=== PATIENT | female | born 1970 | race Caucasian/White ===

== ENCOUNTER → 2017-01-11 | Day surgery (SDC) | payer OTHER ==
--- NOTE | 2017-01-12 15:49 | PATH ---
Surgical Pathology Report Patient Name: SABINA THOMAS [facility]. Rec. #: [id number] /Age/Gender: 1970 (Age: 46) / F Account: [id number] Location: [facility] Taken: 01/11/2017 Received: 01/11/2017 Reported: 01/12/2017 Physicians: Nickie Zavaleta Specimen(s) Received A: RIGHT BREAST SPECIMEN WITH CALCIFICATIONS B: RIGHT BREAST SPECIMEN WITHOUT CALCIFICATIONS Clinical History Nonpalpable lesion Mammographic findings: Suspicious microcalcifications Final Diagnosis A. BREAST, RIGHT, WITH CALCIFICATIONS, STEREOTACTIC BIOPSY: BENIGN BREAST TISSUE SHOWING RARE CALCIFICATIONS IN ASSOCIATION WITH BENIGN GLANDULAR PARENCHYMA. B. BREAST, RIGHT, WITHOUT CALCIFICATIONS, STEREOTACTIC BIOPSY: BENIGN BREAST TISSUE. Electronically Signed Yoli Link M.D. Gross Description A. Received in formalin labeled "right breast with calcifications," is a 2.2 x 2.0 x 0.3 cm aggregate of multiple danielle-yellow, irregular to cylindrical portions of fibroadipose tissue. The formalin is filtered and the specimen is entirely submitted in one cassette. B. Received in formalin labeled "right breast without calcifications," is a 1.3 x 1.1 x 0.3 cm aggregate of multiple danielle-yellow, irregular to cylindrical portions of fibroadipose tissue. The formalin is filtered and the specimen is entirely submitted in one cassette. Time to formalin fixation: 5 minutes Total formalin fixation time: Approximately 8 hours. /01/11/2017 [facility]01/11/2017
== END | disposition home or self-care (01) ==
LOC: FMAMMOTONE 09:10
PROVIDERS: ATTEND Registered Nurse Medical-Surgical
PROC: 0HBT3ZX Excision of Right Breast, Percutaneous Approach, Diagnostic (ICD-10-PCS; principal; 2017-01-11)
DX: N60.81 Other benign mammary dysplasias of right breast (principal); R92.1 Mammographic calcification found on diagnostic imaging of breast; N64.89 Other specified disorders of breast
CPT/HCPCS: 19081; 87899; 88305-TC; A4648

== ENCOUNTER 2018-12-30 16:19 | Inpatient (IN) | payer OTHER ==
[2018-12-30] MEDS ORDERED: morphine SULFATE 4 MG/ML VIAL ONE (17:15)
--- NOTE | 2018-12-30 17:35 | PDOC ---
History of Present Illness - General Chief Complaint: Abscess Boil Stated Complaint: ABSCESS LEFT LEG Time Seen by Provider: 12/30/18 16:37 History Source: Patient Exam Limitations: Language Barrier - History of Present Illness Initial Comments: 12/30/18 17:32 Pt is a 48yo F with PMH of HIV (on Atripla) CD4 adn Viral Load checked in Sep 2018 presenting today for abscess on the L inner thigh. She said she had it for 4 days, said it was small yesterday but has gotten bigger and more painful. She has never had an abscess like this before or elsewhere. She endorses subjective fevers, chills and nausea. She denies pain in the genital area, no vaginal discharge, abdominal pain, n/v/d, chest pain, cough, recent illnesses. PMD: Kathy PMH: see hpi PSH: Meds: Atripla Allergies: nkda Past History - Past Medical History Allergies/Adverse Reactions: Allergies Allergy/AdvReac Type Severity Reaction Status Date / Time No Known Allergies Allergy Verified 02/28/16 15:39 Home Medications: Ambulatory Orders Cholecalciferol (Vitamin D3) [Vitamin D3] 2,000 unit PO DAILY #30 capsule Acetaminophen [Tylenol] 2 tab PO Q4H PRN #60 tablet 01/12/17 Emtricitab/Rilpivirine/Tenofov [Complera Tablet -] 1 each PO DAILY #30 tablet Ibuprofen [Motrin -] 1 tab PO Q8H PRN #21 tablet MDD 3 06/20/17 Multivitamin with Minerals [Icaps Plus] 1 each PO DAILY #30 tablet 06/20/17 Amitriptyline HCl [Elavil -] 25 mg PO HS PRN 10/08/17 Fluoxetine HCl [Prozac] 10 mg PO AM #10 capsule MDD 1 10/18/17 Fluoxetine HCl [Prozac] 20 mg PO AM #30 capsule 01/03/18 Multivitamin [Daily Multiple Vitamin] 1 each PO DAILY #30 tablet 09/23/18 Vitamin B Complex [B Complex] 1 each PO DAILY #30 tablet 09/23/18 Anemia: No Asthma: No Cancer: No Cardiac Disorders: No CVA: No COPD: No CHF: No Dementia: No Diabetes: No GI Disorders: No Disorders: No HTN: No Hypercholesterolemia: No Liver Disease: No Psychiatric Problems: Yes (Depression with 2 suicidal gestures) Seizures: No Thyroid Disease: No - Surgical History Abdominal Surgery: Yes (OVARY CYSTS) - Suicide/Smoking/Psychosocial Hx Smoking History: Never smoked Have you smoked in the past 12 months: No Number of Cigarettes Smoked Daily: 2 If you are a former smoker, when did you quit?: 06/2014 Cigars Per Day: 0 Hx Alcohol Use: No Drug/Substance Use Hx: No Substance Use Type: None Hx Substance Use Treatment: No Review of Systems - Review of Systems Constitutional: Yes: Chills, Fever HEENTM: No: Symptoms Reported Respiratory: No: Cough, Shortness of Breath Cardiac (ROS): No: Chest Pain, Lightheadedness, Palpitations ABD/GI: Yes: Nausea. No: Blood Streaked Bowels, Constipated, Diarrhea, Poor Appetite, Abdominal cramping, Tarry Stools : No: Burning, Dysuria, Flank Pain, Hematuria Musculoskeletal: No: Back Pain, Joint Pain, Muscle Pain Integumentary: Yes: See HPI, Erythema, Lesions Neurological: No: Headache, Numbness, Tingling *Physical Exam - Vital Signs Last Vital Signs Temp Pulse Resp BP Pulse Ox 98.5 F 90 16 111/65 99 12/30/18 16:39 12/30/18 16:39 12/30/18 16:39 12/30/18 16:39 12/30/18 16:39 - Physical Exam General Appearance: Yes: Nourished, Appropriately Dressed, Moderate Distress HEENT: positive: EOMI, MIKA, Other (normal oropharynx). negative: Scleral Icterus (R), Scleral Icterus (L), Thrush Neck: positive: Supple. negative: Lymphadenopathy (R), Lymphadenopathy (L) Respiratory/Chest: positive: Lungs Clear, Normal Breath Sounds. negative: Crackles, Rales, Rhonchi Cardiovascular: positive: Regular Rhythm, Regular Rate, S1, S2. negative: Edema , JVD, Murmur Vascular Pulses: Carotid (R): 2+, Carotid (L): 2+, Dorsalis-Pedis (R): 2+, Doralis-Pedis (L): 2+ Gastrointestinal/Abdominal: positive: Normal Bowel Sounds, Soft. negative: Distended, Guarding, Rebound, Tenderness Musculoskeletal: negative: CVA Tenderness Extremity: positive: Normal Capillary Refill, Pelvis Stable. negative: Swelling Integumentary: positive: Normal Color, Dry, Warm, Other (6cm firm abscess without drainage, ttp with surrounding erythema. ) Neurologic: positive: cryptologic support specialist II-XII NML intact, Fully Oriented, Alert, Normal Mood/ Affect, Normal Response, Motor Strength 5/5 Moderate Sedation - Procedure Monitoring Vital Signs: Procedure Monitoring Vital Signs Temperature 98.5 F 12/30/18 16:39 Pulse Rate 90 12/30/18 16:39 Respiratory Rate 16 12/30/18 16:39 Blood Pressure 111/65 12/30/18 16:39 O2 Sat by Pulse Oximetry (%) 99 12/30/18 16:39 Medical Decision Making - Medical Decision Making 12/30/18 17:35 Pt is a 48yo F with PMH of HIV (on Atripla) CD4 adn Viral Load checked in Sep 2018 presenting today for abscess on the L inner thigh. She said she had it for 4 days, said it was small yesterday but has gotten bigger and more painful. She has never had an abscess like this before or elsewhere. She endorses subjective fevers, chills and nausea. She denies pain in the genital area, no vaginal discharge, abdominal pain, n/v/d, chest pain, cough, recent illnesses. Vitals: afebrile, normal vitals PE: abscess in L thigh near gluteal fold history of HIV with abscess. Low suspicion for Jl Gangrene at this time. POCUS showed cobblestoning at area of abscess, does not appear to go deeper into tissues. -cbc, cmp, blood cultures, lact, coags -4mg morphine 12/30/18 18:01
[2018-12-30] MEDS ORDERED: morphine CARPU-JECT 4 MG/1 ML DISP.SYRIN IVPUSH ONE (17:36)
[2018-12-30 18:02] LABS: BASO % 0.3 % (0-2.0); EOS % 1.3 % (0-4.5); HEMATOCRIT 37.2 % (32.4-45.2); HEMOGLOBIN 12.7 GM/dL (10.7-15.3); LYMPH % 22.5 % (8-40); MCH 29.8 pg (25.7-33.7); MCHC 34.1 g/dl (32.0-36.0); MEAN CELL VOLUME 87.6 fl (80-96); MEAN PLT VOLUME 9.3 fl (7.5-11.1); MONO % 7.8 % (3.8-10.2); NEUT % 68.1 % (42.8-82.8); PLATELET COUNT 148 K/MM3 (134-434); RBC 4.24 M/mm3 (3.60-5.2); WHITE BLOOD COUNT 5.5 K/mm3 (4.0-10.0)
[2018-12-30 18:27] LABS: INR 0.99 (0.83-1.09); PROTHROMBIN TIME (PATIENT) 11.7 SEC (9.7-13.0)
[2018-12-30 18:30] LABS: ACTIVATED PTT 28.1 SECONDS (25.2-36.5)
[2018-12-30 18:35] LABS: ALBUMIN 3.6 g/dl (3.4-5.0); ALK PHOS 132 U/L (45-117); ANION GAP 5 MMOL/L (8-16); BILIRUBIN,TOTAL 0.4 mg/dL (0.2-1); BLOOD UREA NITROGEN 15 mg/dL (7-18); CALCIUM 8.9 mg/dL (8.5-10.1); CHLORIDE 104 mmol/L (98-107); CO2 27 mmol/L (21-32); CREATININE 0.8 mg/dL (0.55-1.3); GLUCOSE,RANDOM 90 mg/dL (74-106); POTASSIUM 3.7 mmol/L (3.5-5.1); SGOT/AST 18 U/L (15-37); SGPT/ALT 28 U/L (13-61); SODIUM 137 mmol/L (136-145); TOT PROT 7.9 g/dl (6.4-8.2)
--- NOTE | 2018-12-30 18:49 | PDOC ---
Attending Attestation - HPI HPI: 12/30/18 18:56 The patient is a 48 year old female, with a significant past medical history of HIV (on Atripla CD4 and Viral Load last checked in Sep 2018), who presents to the emergency department with, 4 days of an abscess to left inner thigh with associated subjective fevers and nausea without emesis. She denies recent headache or dizziness. She denies recent vomit, diarrhea or constipation. She denies recent dysuria, frequency, urgency or hematuria. She denies recent chest pain or shortness of breath. Allergies: NKDA Primary Care Physician: Dr. Cassy Chavez - Physicial Exam PE: 12/30/18 18:56 GENERAL: Well-appearing, well-nourished. No apparent distress. HEENT: Normocephalic, atraumatic. PERRL, EOM intact. CARDIOVASCULAR: Normal S1, S2. Regular rate and rhythm. PULMONARY: Clear to auscultation bilaterally. ABDOMEN: Soft, non-distended, non-tender. EXTREMITIES: Normal ROM in all four extremities. No gross deformities. SKIN: +6x6cm area of induration to the left inner thigh near a gluteal fold with fluctuance, tenderness, and erythema. NEUROLOGICAL: No focal neurological deficits. <Nika Mcdonnell - Last Filed: 12/30/18 18:56> - Resident Resident Name: America Elise - ED Attending Attestation I have performed the following: I have examined & evaluated the patient, The case was reviewed & discussed with the resident, I agree w/resident's findings & plan, Exceptions are as noted - Medical Decision Making 12/30/18 21:[address] Knowles pt admitted for IV antibiotics,surgery for abscess on this immunocompromised pt Dr Knowles will consult on pt in the am pt started on antibiotics <Yumiko Worley - Last Filed: 12/30/18 21:19> Attestations - Attestations 12/30/18 18:56 Documentation prepared by Nika Mcdonnell, acting as medical observer for Yumiko Worley MD. <Nika Mcdonnell - Last Filed: 12/30/18 18:56>
[2018-12-30] MEDS ORDERED: SULFAMETHOXAZOLE/TRIMETHOPRIM 800MG/160MG D.S. TABLET PO ONE (18:57)
[2018-12-30] MEDS ORDERED: SULFAMETHOXAZOLE/TRIMETHOPRIM 800MG/160MG D.S. TABLET ONE (20:30)
--- NOTE | 2018-12-30 21:18 | HP ---
Admitting History and Physical - Primary Care Physician PCP: Shubham Espinoza - Admission History of Present Illness: 48 year old female, with a significant past medical history of HIV (on Atripla CD4 and Viral Load last checked in Sep 2018), who presents to the emergency department with, 4 days of an abscess to left inner thigh with associated subjective fevers and nausea without emesis. - Past Medical History ...LMP: 10/05/14 Infectious Disease: Yes: HIV - Smoking History Smoking history: Never smoked Have you smoked in the past 12 months: No Aproximately how many cigarettes per day: 2 If you are a former smoker, when did you quit?: 06/2014 - Alcohol/Substance Use Hx Alcohol Use: No Home Medications - Allergies Allergies/Adverse Reactions: Allergies Allergy/AdvReac Type Severity Reaction Status Date / Time vancomycin AdvReac Mild Itching Verified 01/01/19 17:10 - Home Medications Home Medications: Ambulatory Orders Cholecalciferol (Vitamin D3) [Vitamin D3] 2,000 unit PO DAILY #30 capsule Acetaminophen [Tylenol] 2 tab PO Q4H PRN #60 tablet 01/12/17 Ibuprofen [Motrin -] 1 tab PO Q8H PRN #21 tablet MDD 3 06/20/17 Multivitamin with Minerals [Icaps Plus] 1 each PO DAILY #30 tablet 06/20/17 Multivitamin [Daily Multiple Vitamin] 1 each PO DAILY #30 tablet 09/23/18 Vitamin B Complex [B Complex] 1 each PO DAILY #30 tablet 09/23/18 Efavirenz/Emtricit/Tenofovr Df [Atripla Tablet] 1 each PO HS 12/31/18 Physical Examination Vital Signs: Vital Signs Temperature 98.5 F 12/30/18 16:39 Pulse Rate 90 12/30/18 16:39 Respiratory Rate 16 12/30/18 16:39 Blood Pressure 111/65 12/30/18 16:39 O2 Sat by Pulse Oximetry (%) 99 12/30/18 16:39 Constitutional: Yes: No Distress HENT: Yes: Atraumatic Neck: Yes: Supple Cardiovascular: Yes: Regular Rate and Rhythm Respiratory: Yes: CTA Bilaterally Gastrointestinal: Yes: Normal Bowel Sounds Extremities: Yes: Other (left thigh /gluteal fold abcess) Neurological: Yes: Alert, Oriented Labs: CBC, BMP 12/30/18 17:18 12/30/18 17:18 Problem List - Problems (1) Abscess Assessment/Plan: iv abx surgery consult Code(s): L02.91 - CUTANEOUS ABSCESS, UNSPECIFIED (2) Human immunodeficiency virus (HIV) seropositivity Assessment/Plan: continue home meds Code(s): Z21 - ASYMPTOMATIC HUMAN IMMUNODEFICIENCY VIRUS INFECTION STATUS Assessment/Plan Laboratory Tests 12/30/18 12/30/18 12/30/18 17:18 17:18 17:18 WBC 5.5 RBC 4.24 Hgb 12.7 Hct 37.2 MCV 87.6 MCH 29.8 MCHC 34.1 RDW 14.0 Plt Count 148 MPV 9.3 Absolute Neuts (auto) 3.8 Neutrophils % 68.1 Lymphocytes % 22.5 D Monocytes % 7.8 Eosinophils % 1.3 Basophils % 0.3 Nucleated RBC % 0 PT with INR INR PTT (Actin FS) Sodium 137 Potassium 3.7 Chloride 104 Carbon Dioxide 27 Anion Gap 5 L BUN 15 Creatinine 0.8 Creat Clearance w eGFR > 60 Random Glucose 90 Lactic Acid Calcium 8.9 Total Bilirubin 0.4 AST 18 ALT 28 Alkaline Phosphatase 132 H Total Protein 7.9 Albumin 3.6 Serum , Qual Negative 12/30/18 12/30/18 17:35 17:35 WBC RBC Hgb Hct MCV MCH MCHC RDW Plt Count MPV Absolute Neuts (auto) Neutrophils % Lymphocytes % Monocytes % Eosinophils % Basophils % Nucleated RBC % PT with INR 11.70 INR 0.99 PTT (Actin FS) 28.1 Sodium Potassium Chloride Carbon Dioxide Anion Gap BUN Creatinine Creat Clearance w eGFR Random Glucose Lactic Acid 0.8 Calcium Total Bilirubin AST ALT Alkaline Phosphatase Total Protein Albumin Serum , Qual Active Medications Generic Name Dose Route Start Last Admin Trade Name Freq PRN Reason Stop Dose Admin Acetaminophen 650 mg 12/30/18 21:22 12/31/18 08:05 Tylenol - PO 650 mg Q6H PRN Administration FEVER Amitriptyline HCl 25 mg 12/30/18 21:21 Elavil - PO HS PRN HEADACHE Cholecalciferol 2,000 unit 12/31/18 10:00 12/31/18 09:09 Vitamin D3 - PO 2,000 unit DAILY KADE Administration Emtricitabine/Rilpivirine/Tenofovir 1 each 12/31/18 08:00 12/31/18 08:05 Complera - PO 1 each DAILY@0800 KADE Administration Fluoxetine HCl 10 mg 12/31/18 10:00 12/31/18 09:09 Prozac - PO 10 mg DAILY KADE Administration Heparin Sodium (Porcine) 5,000 unit 12/30/18 22:00 12/31/18 09:12 Heparin - SQ 5,000 unit BID KADE Administration Piperacillin Sod/Tazobactam 50 mls @ 100 mls/hr 12/30/18 21:45 12/31/18 18:25 Sod 3.375 gm/ Dextrose IVPB 100 mls/hr Q8H-IV KADE Administration Protocol Multivitamins/Minerals/Vitamin C 1 tab 12/31/18 10:00 12/31/18 09:09 Tab-A-Vit - PO 1 tab DAILY KADE Administration Ondansetron HCl 4 mg 12/31/18 15:56 Zofran Injection IVPUSH Q4H PRN NAUSEA AND/OR VOMITING
[2018-12-30] MEDS ORDERED: AMITRIPTYLINE HCL 25 MG TABLET (FP) PO PRN (21:21)
[2018-12-30] MEDS ORDERED: VANCOMYCIN 1,000 MG in DEXTROSE 5%-WATER - 250 ML IVPB ONE (21:36)
[2018-12-30] MEDS ORDERED: ACETAMINOPHEN 325 MG TABLET (FP) ONE (22:17)
[2018-12-30] MEDS: PIPERACILLIN/TAZOB 3.375 GM 3.375 GM in DEXTROSE 5%-WATER - 50 ML IVPB SCH (22:18)
[2018-12-30] MEDS ORDERED: PIPERACILLIN/TAZOB 3.375 GM 3.375 GM/50 ML BAG IVPB ONE (22:18)
[2018-12-30] MEDS: ACETAMINOPHEN 325 MG TABLET (FP) PO PRN (22:18)
[2018-12-31] MEDS ORDERED: PNEUMOC 13-VAL CONJ-DIP CRM/PF 0.5 ML DISP.SYRIN IM ONE (01:36)
[2018-12-31] MEDS ORDERED: DEXTROSE 5%-WATER - 50 ML IVPB ONE ×4 (02:28→20:48)
[2018-12-31] MEDS ORDERED: PIPERACILLIN/TAZOBACTAM 3.375 GM VIAL IVPB ONE ×4 (02:28→20:48)
[2018-12-31] MEDS: PIPERACILLIN/TAZOB 3.375 GM 3.375 GM in DEXTROSE 5%-WATER - 50 ML IVPB SCH ×3 (02:30→18:25)
[2018-12-31 03:04] VITALS: BMI 25.2
[2018-12-31] MEDS: HEPARIN NA (PORCINE) 5,000 UNITS/ML 1ML VIAL SQ SCH ×3 (04:20→21:24)
[2018-12-31] MEDS ORDERED: PT OWN MED DRAWER 7, Y5N ONE ×4 (06:43→10:28)
[2018-12-31] MEDS: EMTRICITAB/RILPIVIRINE/TENOFOV 1 EACH TABLET PO SCH (08:05)
[2018-12-31] MEDS: ACETAMINOPHEN 325 MG TABLET (FP) PO PRN (08:05)
[2018-12-31 08:44] LABS: BASO % 0.3 % (0-2.0); EOS % 2.2 % (0-4.5); HEMATOCRIT 34.8 % (32.4-45.2); HEMOGLOBIN 11.6 GM/dL (10.7-15.3); MCHC 33.4 g/dl (32.0-36.0); MEAN CELL VOLUME 86.6 fl (80-96); MEAN PLT VOLUME 8.8 fl (7.5-11.1); MONO % 11.5 % (3.8-10.2); PLATELET COUNT 136 K/MM3 (134-434); RBC 4.01 M/mm3 (3.60-5.2); RDW 13.9 % (11.6-15.6)
[2018-12-31] MEDS: MULTIVITAMINS (DAILY MVI) TABLET (FP) PO SCH (09:09)
[2018-12-31] MEDS: FLUoxetine HCL 10 MG CAPSULE (FP) PO SCH (09:09)
[2018-12-31] MEDS: CHOLECALCIFEROL (VITAMIN D3) 1,000 UNIT TABLET (FP) PO SCH (09:09)
[2018-12-31 09:13] LABS: ALBUMIN 3.2 g/dl (3.4-5.0); ALK PHOS 126 U/L (45-117); ANION GAP 6 MMOL/L (8-16); BILIRUBIN,TOTAL 0.4 mg/dL (0.2-1); BLOOD UREA NITROGEN 13 mg/dL (7-18); CALCIUM 8.5 mg/dL (8.5-10.1); CHLORIDE 107 mmol/L (98-107); CO2 26 mmol/L (21-32); GLUCOSE,RANDOM 98 mg/dL (74-106); SGOT/AST 14 U/L (15-37); SGPT/ALT 22 U/L (13-61); SODIUM 139 mmol/L (136-145); TOT PROT 7.2 g/dl (6.4-8.2)
[2018-12-31] MEDS ORDERED: PNEUMOCOCCAL 23 VACCINE 0.5 ML VIAL IM ONE (10:00)
[2018-12-31 10:11] LABS: URINE APPEARANCE SLCLOUDY; URINE BILIRUBIN NEGATIVE (<2.0 mg/dL); URINE COLOR YELLOW; URINE GLUCOSE (UA) NEGATIVE (NEGATIVE); URINE KETONE NEGATIVE (NEGATIVE); URINE LEUK ESTERASE 1+ (NEGATIVE); URINE NITRITE NEGATIVE (NEGATIVE); URINE PROTEIN NEGATIVE (NEGATIVE); URINE UROBILINOGEN NEGATIVE mg/dL (0.2-1.0)
[2018-12-31 10:25] LABS: EPI CELLS MODERATE /HPF (FEW)
--- NOTE | 2018-12-31 12:01 | CON.ID ---
Consult Consult Specialty:: infectious diseases Referred by:: Reason for Consultation:: gluteal abscess - History of Present Illness Chief Complaint: abscess on the gluteal region History of Present Illness: 48 year old female, with a significant past medical history of HIV (on Atripla CD4 ), who presents to the emergency department with, 4 days of an abscess to left inner thigh with associated subjective fevers and nausea without emesis. according to the patient she does not know how it happened but it started hurting her and the patient decided to come to the hospital patient received bactrim ds patient is c/o of pain at that site denies any fever - History Source History Provided By: Patient Limitations to Obtaining History: Language Barrier - Past Medical History ...LMP: 10/05/14 Infectious Disease: Yes: HIV - Alcohol/Substance Use Hx Alcohol Use: No - Smoking History Smoking history: Former smoker Have you smoked in the past 12 months: No Aproximately how many cigarettes per day: 2 If you are a former smoker, when did you quit?: 06/2014 Home Medications - Allergies Allergies/Adverse Reactions: Allergies Allergy/AdvReac Type Severity Reaction Status Date / Time No Known Allergies Allergy Verified 02/28/16 15:39 - Home Medications Home Medications: Ambulatory Orders Cholecalciferol (Vitamin D3) [Vitamin D3] 2,000 unit PO DAILY #30 capsule Acetaminophen [Tylenol] 2 tab PO Q4H PRN #60 tablet 01/12/17 Emtricitab/Rilpivirine/Tenofov [Complera Tablet -] 1 each PO DAILY #30 tablet Ibuprofen [Motrin -] 1 tab PO Q8H PRN #21 tablet MDD 3 06/20/17 Multivitamin with Minerals [Icaps Plus] 1 each PO DAILY #30 tablet 06/20/17 Amitriptyline HCl [Elavil -] 25 mg PO HS PRN 10/08/17 Fluoxetine HCl [Prozac] 10 mg PO AM #10 capsule MDD 1 10/18/17 Fluoxetine HCl [Prozac] 20 mg PO AM #30 capsule 01/03/18 Multivitamin [Daily Multiple Vitamin] 1 each PO DAILY #30 tablet 09/23/18 Vitamin B Complex [B Complex] 1 each PO DAILY #30 tablet 09/23/18 Review of Systems - Review of Systems Constitutional: reports: No Symptoms Eyes: reports: No Symptoms HENT: reports: No Symptoms Neck: reports: No Symptoms Cardiovascular: reports: No Symptoms Respiratory: reports: No Symptoms Gastrointestinal: reports: No Symptoms Musculoskeletal: reports: Muscle Pain (gluteal region) Integumentary: reports: Erythema, Wound Neurological: reports: No Symptoms Endocrine: reports: No Symptoms Hematology/Lymphatic: reports: No Symptoms Psychiatric: reports: No Symptoms Physical Exam Vital Signs: Vital Signs Temperature 98.1 F 12/31/18 06:11 Pulse Rate 62 12/31/18 06:11 Respiratory Rate 20 12/31/18 06:11 Blood Pressure 92/54 L 12/31/18 06:11 O2 Sat by Pulse Oximetry (%) 100 12/30/18 17:25 Constitutional: Yes: Well Nourished, Calm, Mild Distress, Obese Eyes: Yes: Conjunctiva Clear HENT: Yes: Atraumatic, Normocephalic Neck: Yes: Supple Cardiovascular: Yes: Regular Rate and Rhythm Respiratory: Yes: Regular, CTA Bilaterally Gastrointestinal: Yes: Normal Bowel Sounds, Soft Renal/: Yes: Other (gluteal abscess) Musculoskeletal: Yes: WNL Wound/Incision: Yes: Draining Neurological: Yes: Alert, Oriented Psychiatric: Yes: Alert, Oriented Labs: CBC, BMP 12/31/18 07:45 12/31/18 07:45 Assessment/Plan Problem List - Problems (1) Abscess Code(s): L02.91 - CUTANEOUS ABSCESS, UNSPECIFIED (2) Human immunodeficiency virus (HIV) seropositivity Code(s): Z21 - ASYMPTOMATIC HUMAN IMMUNODEFICIENCY VIRUS INFECTION STATUS plan this cutaneous abscess neds to be drained we will continue iv abx for now once drained we can switch to oral rest as per the team
[2018-12-31] MEDS ORDERED: ONDANSETRON 4 MG/2 ML VIAL IVPUSH PRN (15:56)
--- NOTE | 2018-12-31 17:45 | CONSULT ---
Consult Consult Specialty:: General Surgery Referred by:: Dr. Worley Reason for Consultation:: left gluteal fold abscess - History of Present Illness Chief Complaint: left gluteal fold pain, nausea, f/c History of Present Illness: 48yo [place] F with HIV but undetectable viral load in September, h/o depression no longer on meds, s/p lap tubal ligation and RSO via open incision, admitted yesterday through ER with left gluteal fold abscess beginning about 4 days prior as small bump/pimple that got bigger and much worse yesterday. It started to drain last night and earlier today, per pt had some bloody drainage as well as purulent. She had F/C at home prior to admission, along with nausea but no vomiting until today earlier here. Headache and right sinus pressure with nasal congestion also present, she states she has had the latter for about 2 weeks. In ER, she was afebrile with Tmax 99, wbc normal 4-5 with normal diff, and noted to have this abscess. She has been on IV antibiotics per ID, tolerating diet, but did have n/v this morning. Surgery was asked to assess. She is seen and examined in bed, and understands enough Gabonese to get through H &P with me, giving the above history. Newton Guzman assisted with R[place]andan conversation regarding the lesion itself, possible treatments and the plan. - History Source History Provided By: Patient Limitations to Obtaining History: Language Barrier (Rwandan, facilitated by Newton Guzman at bedside) - Past Medical History Hepatobiliary: Yes: Hepatitis B (?? core Ab was positive in '-, but no RNA detectable in '16) Reproductive: Yes: Ectopic (requiring RSO). No: Postmenopausal ...LMP: 12/07/18 ...: No Infectious Disease: Yes: HIV (viral load <20/undetectable 10/08 with CD4 absolute 449) Psych: Yes: Depression (history of, not on meds for at least 4 months) ENT: Yes: Other (has had a cold for about 2 weeks, headache/right sinus pressure ) - Past Surgical History Past Surgical History: Yes: Oopherectomy (right with tube, after ectopic (via lower midline incision)), Tubal Ligation (laparoscopic) - Alcohol/Substance Use Hx Alcohol Use: Yes (occasional) History of Substance Use: reports: None - Smoking History Smoking history: Former smoker (1ppd x 1 year) Have you smoked in the past 12 months: No If you are a former smoker, when did you quit?: 06/2014 - Social History Usual Living Arrangement: With Spouse (and children) ADL: Independent 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 Place of : Other ([place]) Home Medications - Allergies Allergies/Adverse Reactions: Allergies Allergy/AdvReac Type Severity Reaction Status Date / Time No Known Allergies Allergy Verified 02/28/16 15:39 - Home Medications Home Medications: Ambulatory Orders Cholecalciferol (Vitamin D3) [Vitamin D3] 2,000 unit PO DAILY #30 capsule Acetaminophen [Tylenol] 2 tab PO Q4H PRN #60 tablet 01/12/17 Ibuprofen [Motrin -] 1 tab PO Q8H PRN #21 tablet MDD 3 06/20/17 Multivitamin with Minerals [Icaps Plus] 1 each PO DAILY #30 tablet 06/20/17 Multivitamin [Daily Multiple Vitamin] 1 each PO DAILY #30 tablet 09/23/18 Vitamin B Complex [B Complex] 1 each PO DAILY #30 tablet 09/23/18 Efavirenz/Emtricit/Tenofovr Df [Atripla Tablet] 1 each PO HS 12/31/18 Home Medications (free text): occasional Advil or Motrin, but Atripla is her only regular medication Family Disease History - Family Disease History Family History: Unremarkable (noncontributory) Review of Systems - Review of Systems Constitutional: reports: Chills, Fever Eyes: denies: Blurred Vision, Recent Change in Vision HENT: reports: Nasal Congestion, Other (right sinus pressure). denies: Difficult Swallowing, Throat Pain Neck: denies: Swollen Glands, Tenderness Cardiovascular: denies: Chest Pain, Palpitations Respiratory: denies: Cough, SOB Gastrointestinal: reports: Nausea, Vomiting (just today). denies: Abdominal Pain, Constipation, Diarrhea Genitourinary: denies: Burning, Dysuria Musculoskeletal: reports: Back Pain (upper back, related to her work). denies: Joint Pain, Muscle Pain Integumentary: reports: Erythema (local to wound, with hpi), Lump (with hpi). denies: Rash Neurological: reports: Headache. denies: Dizziness Psychiatric: denies: Anxiety, Depression (not recently - she reports being better since all her kids are now with her instead of in [place]) Physical Exam Vital Signs: Vital Signs Temperature 98.1 F 12/31/18 17:09 Pulse Rate 64 12/31/18 17:09 Respiratory Rate 20 12/31/18 17:09 Blood Pressure 103/58 L 12/31/18 17:09 O2 Sat by Pulse Oximetry (%) 100 12/31/18 09:00 Constitutional: Yes: Well Nourished, No Distress, Calm Eyes: Yes: Conjunctiva Clear, EOM Intact HENT: Yes: Atraumatic, Normocephalic Neck: Yes: Supple, Trachea Midline Cardiovascular: Yes: Regular Rate and Rhythm Respiratory: Yes: Regular, CTA Bilaterally Gastrointestinal: Yes: Soft, Other (healed lower midline and infraumbilical ( laparoscopic) scars). No: Distention, Hernia (none appreciated), Tenderness ...Rectal Exam: Yes: Deferred, Other (left gluteal fold medially with tender, raised, erythematous pustule, few cm diameter, with central necrotic spot and evidence of dried blood nearby and previous drainage - per pt, had more out yesterday and earlier, some bloody, some pus) Renal/: No: CVA Tenderness - Left, CVA Tenderness - Right Musculoskeletal: No: Joint Stiffness, Joint Swelling Extremities: No: Cool, Cyanosis Edema: No Peripheral Pulses WNL: Yes Integumentary: Yes: Tattoos. No: Jaundice, Rash Wound/Incision: Yes: Open to air, Reddened. No: Draining (see above - site too tender to attempt expressing any active drainage - evidence of previous drainage present) Neurological: Yes: Alert, Oriented Psychiatric: Yes: Alert, Oriented Labs: CBC, BMP 12/31/18 07:45 12/31/18 07:45 CMP Sodium 139 mmol/L (136-145) 12/31/18 07:45 Potassium 4.0 mmol/L (3.5-5.1) 12/31/18 07:45 Chloride 107 mmol/L (98-107) 12/31/18 07:45 Carbon Dioxide 26 mmol/L (21-32) 12/31/18 07:45 Anion Gap 6 MMOL/L (8-16) L 12/31/18 07:45 BUN 13 mg/dL (7-18) 12/31/18 07:45 Creatinine 1.0 mg/dL (0.55-1.3) 12/31/18 07:45 Creat Clearance w eGFR 58.93 (>60) 12/31/18 07:45 Random Glucose 98 mg/dL (74-106) 12/31/18 07:45 Lactic Acid 0.8 mmol/L (0.4-2.0) 12/30/18 17:35 Calcium 8.5 mg/dL (8.5-10.1) 12/31/18 07:45 Total Bilirubin 0.4 mg/dL (0.2-1) 12/31/18 07:45 AST 14 U/L (15-37) L 12/31/18 07:45 ALT 22 U/L (13-61) 12/31/18 07:45 Alkaline Phosphatase 126 U/L (45-117) H 12/31/18 07:45 Total Protein 7.2 g/dl (6.4-8.2) 12/31/18 07:45 Albumin 3.2 g/dl (3.4-5.0) L 12/31/18 07:45 Serum , Qual Negative 12/30/18 17:18 INR, PTT INR 0.99 (0.83-1.09) 12/30/18 17:35 Urine Test Results Urine Color Yellow 12/31/18 09:30 Urine Appearance Slcloudy 12/31/18 09:30 Urine pH 5.0 (5.0-8.0) 12/31/18 09:30 Ur Specific [place] 1.019 (1.010-1.035) 12/31/18 09:30 Urine Protein Negative (NEGATIVE) 12/31/18 09:30 Urine Glucose (UA) Negative (NEGATIVE) 12/31/18 09:30 Urine Ketones Negative (NEGATIVE) 12/31/18 09:30 Urine Blood Negative (NEGATIVE) 12/31/18 09:30 Urine Nitrite Negative (NEGATIVE) 12/31/18 09:30 Urine Bilirubin Negative (<2.0 mg/dL) 12/31/18 09:30 Ur Leukocyte Esterase 1+ (NEGATIVE) H 12/31/18 09:30 Ur Epithelial Cells Moderate /HPF (FEW) 12/31/18 09:30 Problem List - Problems (1) Abscess, gluteal, left Assessment/Plan: left gluteal fold abscess - already started draining some spontaneously pt can barely tolerate touching site, may not tolerate I&D under local anesthetic will try warm compresses frequently tonight, allow to shower and she may try herself to encourage drainage from the site keep covered with gauze and tape after shower (dressing applied) in case of more drainage NPO after midnight in case OR required continue abx per ID will follow with you Discussed with patient basic concept of incision and drainage of left gluteal fold abscess, either under local anesthesia or possibly in the OR. Patient understands that formal drainage may be necessary, and could require OR if she cannot tolerate local anesthetic. Will reassess tomorrow. Code(s): L02.31 - CUTANEOUS ABSCESS OF BUTTOCK (2) Cellulitis, gluteal, left Code(s): L03.317 - CELLULITIS OF BUTTOCK (3) Nausea & vomiting Assessment/Plan: tolerating diet, but did have some N/V this morning may be GI upset from abx? antiemetics prn Code(s): R11.2 - NAUSEA WITH VOMITING, UNSPECIFIED Qualifiers: Vomiting type: unspecified Vomiting Intractability: non-intractable Qualified Code(s): R11.2 - Nausea with vomiting, unspecified (4) Human immunodeficiency virus (HIV) seropositivity Assessment/Plan: viral load recently below 20 Code(s): Z21 - ASYMPTOMATIC HUMAN IMMUNODEFICIENCY VIRUS INFECTION STATUS
--- NOTE | 2018-12-31 20:34 | PN ---
Progress Note, Physician - Current Medication List Current Medications: Active Medications Acetaminophen (Tylenol -) 650 mg PO Q6H PRN PRN Reason: FEVER Last Admin: 12/31/18 08:05 Dose: 650 mg Amitriptyline HCl (Elavil -) 25 mg PO HS PRN PRN Reason: HEADACHE Cholecalciferol (Vitamin D3 -) 2,000 unit PO DAILY [facility] Last Admin: 12/31/18 09:09 Dose: 2,000 unit Emtricitabine/Rilpivirine/Tenofovir (Complera -) 1 each PO DAILY@0800 [facility] Last Admin: 12/31/18 08:05 Dose: 1 each Fluoxetine HCl (Prozac -) 10 mg PO DAILY [facility] Last Admin: 12/31/18 09:09 Dose: 10 mg Heparin Sodium (Porcine) (Heparin -) 5,000 unit SQ BID [facility] Last Admin: 12/31/18 09:12 Dose: 5,000 unit Piperacillin Sod/Tazobactam (Sod 3.375 gm/ Dextrose) 50 mls @ 100 mls/hr IVPB Q8H-IV [facility]; Protocol Last Admin: 12/31/18 18:25 Dose: 100 mls/hr Multivitamins/Minerals/Vitamin C (Tab-A-Vit -) 1 tab PO DAILY [facility] Last Admin: 12/31/18 09:09 Dose: 1 tab Ondansetron HCl (Zofran Injection) 4 mg IVPUSH Q4H PRN PRN Reason: NAUSEA AND/OR VOMITING - Objective Vital Signs: Vital Signs Temperature 98.1 F 12/31/18 17:09 Pulse Rate 64 12/31/18 17:09 Respiratory Rate 20 12/31/18 17:09 Blood Pressure 103/58 L 12/31/18 17:09 O2 Sat by Pulse Oximetry (%) 100 12/31/18 09:00 Constitutional: Yes: No Distress HENT: Yes: Atraumatic Neck: Yes: Supple Cardiovascular: Yes: Regular Rate and Rhythm Respiratory: Yes: CTA Bilaterally Gastrointestinal: Yes: Normal Bowel Sounds Extremities: Yes: WNL, Other (left thigh, gluteal fold abcess) Edema: No Neurological: Yes: Alert, Oriented Labs: CBC, BMP 12/31/18 07:45 12/31/18 07:45 INR, PTT INR 0.99 (0.83-1.09) 12/30/18 17:35 Problem List - Problems (1) Abscess Assessment/Plan: iv abx surgery consult warm compresses OR tomorrow if needed for drainage Code(s): L02.91 - CUTANEOUS ABSCESS, UNSPECIFIED (2) Human immunodeficiency virus (HIV) seropositivity Assessment/Plan: continue home meds Code(s): Z21 - ASYMPTOMATIC HUMAN IMMUNODEFICIENCY VIRUS INFECTION STATUS
[2019-01-01] MEDS: PIPERACILLIN/TAZOB 3.375 GM 3.375 GM in DEXTROSE 5%-WATER - 50 ML IVPB SCH ×3 (02:44→17:20)
[2019-01-01] MEDS ORDERED: DEXTROSE 5%-WATER - 50 ML IVPB ONE ×2 (09:43→17:18)
[2019-01-01] MEDS ORDERED: PIPERACILLIN/TAZOBACTAM 3.375 GM VIAL IVPB ONE ×2 (09:43→17:18)
--- NOTE | 2019-01-01 09:46 | PN ---
Progress Note, Physician History of Present Illness: patient stable going for surgery - Current Medication List Current Medications: Active Medications Acetaminophen (Tylenol -) 650 mg PO Q6H PRN PRN Reason: FEVER Last Admin: 12/31/18 08:05 Dose: 650 mg Amitriptyline HCl (Elavil -) 25 mg PO HS PRN PRN Reason: HEADACHE Cholecalciferol (Vitamin D3 -) 2,000 unit PO DAILY [facility] Last Admin: 12/31/18 09:09 Dose: 2,000 unit Emtricitabine/Rilpivirine/Tenofovir (Complera -) 1 each PO DAILY@0800 [facility] Last Admin: 12/31/18 08:05 Dose: 1 each Fluoxetine HCl (Prozac -) 10 mg PO DAILY [facility] Last Admin: 12/31/18 09:09 Dose: 10 mg Heparin Sodium (Porcine) (Heparin -) 5,000 unit SQ BID [facility] Last Admin: 12/31/18 21:24 Dose: 5,000 unit Piperacillin Sod/Tazobactam (Sod 3.375 gm/ Dextrose) 50 mls @ 100 mls/hr IVPB Q8H-IV [facility]; Protocol Last Admin: 01/01/19 02:44 Dose: 100 mls/hr Multivitamins/Minerals/Vitamin C (Tab-A-Vit -) 1 tab PO DAILY [facility] Last Admin: 12/31/18 09:09 Dose: 1 tab Ondansetron HCl (Zofran Injection) 4 mg IVPUSH Q4H PRN PRN Reason: NAUSEA AND/OR VOMITING - Objective Vital Signs: Vital Signs Temperature 98.1 F 01/01/19 07:03 Pulse Rate 64 01/01/19 07:03 Respiratory Rate 20 01/01/19 07:03 Blood Pressure 94/52 L 01/01/19 07:03 O2 Sat by Pulse Oximetry (%) 100 12/31/18 09:00 Constitutional: Yes: No Distress, Calm Cardiovascular: Yes: Regular Rate and Rhythm Respiratory: Yes: Regular, CTA Bilaterally Gastrointestinal: Yes: Normal Bowel Sounds, Soft Musculoskeletal: Yes: WNL Extremities: Yes: WNL Neurological: Yes: Alert, Oriented Psychiatric: Yes: Alert, Oriented Labs: CBC, BMP 12/31/18 07:45 12/31/18 07:45 INR, PTT INR 0.99 (0.83-1.09) 12/30/18 17:35 Assessment/Plan Problem List - Problems (1) Abscess Code(s): L02.91 - CUTANEOUS ABSCESS, UNSPECIFIED (2) Human immunodeficiency virus (HIV) seropositivity Code(s): Z21 - ASYMPTOMATIC HUMAN IMMUNODEFICIENCY VIRUS INFECTION STATUS plan continue abx for drainage of abscess today once we have that then we will decide final plan stable
[2019-01-01] MEDS: HEPARIN NA (PORCINE) 5,000 UNITS/ML 1ML VIAL SQ SCH ×2 (10:00→21:27)
[2019-01-01] MEDS: ACETAMINOPHEN 325 MG TABLET (FP) PO PRN (12:23)
[2019-01-01] MEDS ORDERED: PT OWN MED DRAWER 7, Y5N ONE (14:38)
[2019-01-01] MEDS: CHOLECALCIFEROL (VITAMIN D3) 1,000 UNIT TABLET (FP) PO SCH (14:39)
[2019-01-01] MEDS: MULTIVITAMINS (DAILY MVI) TABLET (FP) PO SCH (14:39)
[2019-01-01] MEDS: FLUoxetine HCL 10 MG CAPSULE (FP) PO SCH (14:40)
[2019-01-01] MEDS: EMTRICITAB/RILPIVIRINE/TENOFOV 1 EACH TABLET PO SCH (14:40)
[2019-01-01] MEDS ORDERED: VANCOMYCIN 1 GRAM (PRE-DOCKED) 1,000 MG/250 ML BAG IVPB ONE (14:42)
--- NOTE | 2019-01-01 14:42 | PN ---
Progress Note, Physician History of Present Illness: Pt with L gluteal fold abscess, started to drain spontaneously. Using warm packs and showering with trying to evacuate purulent drainage - has had more since yesterday and pt reports less pain. Can sit better now, showered earlier, will do so again. Feeling better than yesterday. On abx per ID. - Current Medication List Current Medications: Active Medications Acetaminophen (Tylenol -) 650 mg PO Q6H PRN PRN Reason: FEVER Last Admin: 01/01/19 12:23 Dose: 650 mg Amitriptyline HCl (Elavil -) 25 mg PO HS PRN PRN Reason: HEADACHE Cholecalciferol (Vitamin D3 -) 2,000 unit PO DAILY [facility] Last Admin: 12/31/18 09:09 Dose: 2,000 unit Emtricitabine/Rilpivirine/Tenofovir (Complera -) 1 each PO DAILY@0800 [facility] Last Admin: 12/31/18 08:05 Dose: 1 each Fluoxetine HCl (Prozac -) 10 mg PO DAILY [facility] Last Admin: 12/31/18 09:09 Dose: 10 mg Heparin Sodium (Porcine) (Heparin -) 5,000 unit SQ BID [facility] Last Admin: 12/31/18 21:24 Dose: 5,000 unit Piperacillin Sod/Tazobactam (Sod 3.375 gm/ Dextrose) 50 mls @ 100 mls/hr IVPB Q8H-IV [facility]; Protocol Last Admin: 01/01/19 09:46 Dose: 100 mls/hr Multivitamins/Minerals/Vitamin C (Tab-A-Vit -) 1 tab PO DAILY [facility] Last Admin: 12/31/18 09:09 Dose: 1 tab Ondansetron HCl (Zofran Injection) 4 mg IVPUSH Q4H PRN PRN Reason: NAUSEA AND/OR VOMITING - Objective Vital Signs: Vital Signs Temperature 97.8 F 01/01/19 09:00 Pulse Rate 69 01/01/19 09:00 Respiratory Rate 18 01/01/19 09:00 Blood Pressure 104/59 L 01/01/19 09:00 O2 Sat by Pulse Oximetry (%) 100 12/31/18 09:00 Constitutional: Yes: Well Nourished, No Distress, Calm Eyes: Yes: Conjunctiva Clear, EOM Intact HENT: Yes: Atraumatic, Normocephalic ...Rectal Exam: Yes: Other (left gluteal fold abscess with less surrounding erythema and tenderness - central necrotic area yellow, with minimal pus expressible, but more open, some seropurulent drainage on gauze dressing; improved from yesterday and draining) Extremities: No: Cool, Cyanosis Integumentary: Yes: Tattoos. No: Rash Wound/Incision: Yes: Dressing Dry and Intact, Dressing Removed, Draining ( purulence on dressing, few drops expressible, area less raised and inflamed), Reddened (less focal erythema, less tender), Unapproximated Neurological: Yes: Alert, Oriented Labs: Microbiology 12/31/18 09:30 Urine Culture - Final Urine - Urine Clean Catch NO GROWTH OBTAINED 12/30/18 17:30 Blood Culture - Preliminary Blood - Peripheral Venous NO GROWTH OBTAINED AFTER 24 HOURS, INCUBATION TO CONTINUE FOR 4 DAYS. 12/30/18 17:16 Blood Culture - Preliminary Blood - Peripheral Venous NO GROWTH OBTAINED AFTER 24 HOURS, INCUBATION TO CONTINUE FOR 4 DAYS. Problem List - Problems (1) Abscess, gluteal, left Assessment/Plan: left gluteal fold abscess - draining spontaneously improved from yesterday, less inflamed, less tender, more open central area continue warm compresses, showering and she may try herself to encourage drainage from the site keep covered with gauze and tape after shower (dressing applied) in case of more drainage diet reordered - will follow, but doubt will need formal I&D continue abx per ID - Vanco restarted per them, discussed with Dr. Shaffer will follow with you Code(s): L02.31 - CUTANEOUS ABSCESS OF BUTTOCK (2) Cellulitis, gluteal, left Assessment/Plan: improving Code(s): L03.317 - CELLULITIS OF BUTTOCK (3) Nausea & vomiting Code(s): R11.2 - NAUSEA WITH VOMITING, UNSPECIFIED Qualifiers: Vomiting type: unspecified Vomiting Intractability: non-intractable Qualified Code(s): R11.2 - Nausea with vomiting, unspecified (4) Human immunodeficiency virus (HIV) seropositivity Code(s): Z21 - ASYMPTOMATIC HUMAN IMMUNODEFICIENCY VIRUS INFECTION STATUS
[2019-01-01] MEDS ORDERED: diphenhydrAMINE HCL 25 MG CAPSULE (FP) PO ONE (16:45)
--- NOTE | 2019-01-01 17:41 | PN ---
Progress Note, Physician History of Present Illness: feeling much better abcess draining - Current Medication List Current Medications: Active Medications Acetaminophen (Tylenol -) 650 mg PO Q6H PRN PRN Reason: FEVER Last Admin: 01/01/19 12:23 Dose: 650 mg Amitriptyline HCl (Elavil -) 25 mg PO HS PRN PRN Reason: HEADACHE Cholecalciferol (Vitamin D3 -) 2,000 unit PO DAILY [facility] Last Admin: 01/01/19 14:39 Dose: 2,000 unit Emtricitabine/Rilpivirine/Tenofovir (Complera -) 1 each PO DAILY@0800 [facility] Last Admin: 01/01/19 14:40 Dose: 1 each Fluoxetine HCl (Prozac -) 10 mg PO DAILY [facility] Last Admin: 01/01/19 14:40 Dose: 10 mg Heparin Sodium (Porcine) (Heparin -) 5,000 unit SQ BID [facility] Last Admin: 01/01/19 10:00 Dose: Not Given Piperacillin Sod/Tazobactam (Sod 3.375 gm/ Dextrose) 50 mls @ 100 mls/hr IVPB Q8H-IV [facility]; Protocol Last Admin: 01/01/19 17:20 Dose: 100 mls/hr Multivitamins/Minerals/Vitamin C (Tab-A-Vit -) 1 tab PO DAILY [facility] Last Admin: 01/01/19 14:39 Dose: 1 tab Ondansetron HCl (Zofran Injection) 4 mg IVPUSH Q4H PRN PRN Reason: NAUSEA AND/OR VOMITING - Objective Vital Signs: Vital Signs Temperature 98.7 F 01/01/19 17:10 Pulse Rate 65 01/01/19 17:10 Respiratory Rate 20 01/01/19 17:10 Blood Pressure 107/51 L 01/01/19 17:10 O2 Sat by Pulse Oximetry (%) 100 01/01/19 09:00 Constitutional: Yes: No Distress HENT: Yes: Atraumatic Neck: Yes: Supple Cardiovascular: Yes: Regular Rate and Rhythm Respiratory: Yes: CTA Bilaterally Gastrointestinal: Yes: Normal Bowel Sounds Extremities: Yes: Other (L gluteal fold abcess) Neurological: Yes: Alert, Oriented Labs: CBC, BMP 12/31/18 07:45 12/31/18 07:45 INR, PTT INR 0.99 (0.83-1.09) 12/30/18 17:35 Problem List - Problems (1) Abscess Assessment/Plan: iv abx surgery consult Code(s): L02.91 - CUTANEOUS ABSCESS, UNSPECIFIED (2) Human immunodeficiency virus (HIV) seropositivity Assessment/Plan: continue home meds Code(s): Z21 - ASYMPTOMATIC HUMAN IMMUNODEFICIENCY VIRUS INFECTION STATUS
[2019-01-02] MEDS ORDERED: DEXTROSE 5%-WATER - 50 ML IVPB ONE ×2 (01:22→09:24)
[2019-01-02] MEDS ORDERED: PIPERACILLIN/TAZOBACTAM 3.375 GM VIAL IVPB ONE ×2 (01:22→09:24)
[2019-01-02] MEDS: PIPERACILLIN/TAZOB 3.375 GM 3.375 GM in DEXTROSE 5%-WATER - 50 ML IVPB SCH ×2 (01:29→09:29)
[2019-01-02] MEDS ORDERED: PT OWN MED DRAWER 7, Y5N ONE ×3 (08:23→12:34)
[2019-01-02] MEDS: EMTRICITAB/RILPIVIRINE/TENOFOV 1 EACH TABLET PO SCH (08:31)
[2019-01-02] MEDS: HEPARIN NA (PORCINE) 5,000 UNITS/ML 1ML VIAL SQ SCH (09:30)
[2019-01-02] MEDS: FLUoxetine HCL 10 MG CAPSULE (FP) PO SCH (09:30)
[2019-01-02] MEDS: CHOLECALCIFEROL (VITAMIN D3) 1,000 UNIT TABLET (FP) PO SCH (09:30)
[2019-01-02] MEDS: MULTIVITAMINS (DAILY MVI) TABLET (FP) PO SCH (09:30)
--- NOTE | 2019-01-02 12:14 | PN ---
Progress Note, Physician - Current Medication List Current Medications: Active Medications Acetaminophen (Tylenol -) 650 mg PO Q6H PRN PRN Reason: FEVER Last Admin: 01/01/19 12:23 Dose: 650 mg Amitriptyline HCl (Elavil -) 25 mg PO HS PRN PRN Reason: HEADACHE Cholecalciferol (Vitamin D3 -) 2,000 unit PO DAILY [facility] Last Admin: 01/02/19 09:30 Dose: 2,000 unit Emtricitabine/Rilpivirine/Tenofovir (Complera -) 1 each PO DAILY@0800 [facility] Last Admin: 01/02/19 08:31 Dose: 1 each Fluoxetine HCl (Prozac -) 10 mg PO DAILY [facility] Last Admin: 01/02/19 09:30 Dose: 10 mg Heparin Sodium (Porcine) (Heparin -) 5,000 unit SQ BID [facility] Last Admin: 01/02/19 09:30 Dose: Not Given Piperacillin Sod/Tazobactam (Sod 3.375 gm/ Dextrose) 50 mls @ 100 mls/hr IVPB Q8H-IV [facility]; Protocol Last Admin: 01/02/19 09:29 Dose: 100 mls/hr Multivitamins/Minerals/Vitamin C (Tab-A-Vit -) 1 tab PO DAILY [facility] Last Admin: 01/02/19 09:30 Dose: 1 tab Ondansetron HCl (Zofran Injection) 4 mg IVPUSH Q4H PRN PRN Reason: NAUSEA AND/OR VOMITING - Objective Vital Signs: Vital Signs Temperature 97.9 F 01/02/19 10:00 Pulse Rate 64 01/02/19 10:00 Respiratory Rate 18 01/02/19 10:00 Blood Pressure 106/61 01/02/19 10:00 O2 Sat by Pulse Oximetry (%) 100 01/02/19 09:00 Labs: CBC, BMP 12/31/18 07:45 12/31/18 07:45 INR, PTT INR 0.99 (0.83-1.09) 12/30/18 17:35
[2019-01-02] MEDS: CLINDAMYCIN HCL 150 MG CAPSULE (FP) PO SCH ×2 (14:31→18:03)
--- NOTE | 2019-01-02 18:39 | PN ---
Progress Note, Physician History of Present Illness: Pt with L gluteal fold abscess, opened, drained spontaneously with warm packs and showering with trying to evacuate purulent drainage. Pt now smiling, reports much less pain. Can move better now, changed to oral abx per ID today. Dressing changed by nurse earlier today. Seen and examined in bed, feeling well. - Current Medication List Current Medications: Active Medications Acetaminophen (Tylenol -) 650 mg PO Q6H PRN PRN Reason: FEVER Last Admin: 01/01/19 12:23 Dose: 650 mg Amitriptyline HCl (Elavil -) 25 mg PO HS PRN PRN Reason: HEADACHE Cholecalciferol (Vitamin D3 -) 2,000 unit PO DAILY [facility] Last Admin: 01/02/19 09:30 Dose: 2,000 unit Clindamycin HCl (Cleocin -) 300 mg PO Q6HPO [facility] Last Admin: 01/02/19 18:03 Dose: 300 mg Emtricitabine/Rilpivirine/Tenofovir (Complera -) 1 each PO DAILY@0800 [facility] Last Admin: 01/02/19 08:31 Dose: 1 each Fluoxetine HCl (Prozac -) 10 mg PO DAILY [facility] Last Admin: 01/02/19 09:30 Dose: 10 mg Heparin Sodium (Porcine) (Heparin -) 5,000 unit SQ BID [facility] Last Admin: 01/02/19 09:30 Dose: Not Given Multivitamins/Minerals/Vitamin C (Tab-A-Vit -) 1 tab PO DAILY [facility] Last Admin: 01/02/19 09:30 Dose: 1 tab Ondansetron HCl (Zofran Injection) 4 mg IVPUSH Q4H PRN PRN Reason: NAUSEA AND/OR VOMITING - Objective Vital Signs: Vital Signs Temperature 97.9 F 01/02/19 10:00 Pulse Rate 64 01/02/19 10:00 Respiratory Rate 18 01/02/19 10:00 Blood Pressure 106/61 01/02/19 10:00 O2 Sat by Pulse Oximetry (%) 100 01/02/19 09:00 Constitutional: Yes: Well Nourished, No Distress, Calm Eyes: Yes: Conjunctiva Clear, EOM Intact HENT: Yes: Atraumatic, Normocephalic ...Rectal Exam: Yes: Other (left gluteal fold with resolving abscess, dressing removed - see below) Extremities: No: Cool, Cyanosis Integumentary: Yes: Tattoos. No: Rash Wound/Incision: Yes: Dressing Dry and Intact (with serosang strikethrough), Dressing Removed (and replaced with 2x2 gauze and tape), Draining (serosang), Bleeding (small amount, stopped), Unapproximated (with soft, yellow necrotic center - removed plug manually with clean, red-based open wound remaining, slight oozing of blood, no purulence, area now flat, no longer raised and indurated, much less tender, tiny skin bridge present which will separate on its own over small, shallow cavity (~1.5 x 1cm x ?0.7cm deep) - very clean). No : Reddened (minimal erythema left at margins) Neurological: Yes: Alert, Oriented Labs: no new labs Problem List - Problems (1) Abscess, gluteal, left Assessment/Plan: left gluteal fold abscess - drained and opened spontaneously central necrotic plug removed with clean, small/shallow open wound remaining continue daily hygiene, showering, keep site clean and covered with gauze and tape until fully healed 2x2 gauze replaced, tucked into wound slightly changed to oral Clindamycin today 300mg q6H likely ok for d/c home to complete antibiotic course at home x 7 days, per ID/ Dr. Shaffer pt should follow up with [facility] within the week for wound check no need for surgical followup Thank you for the opportunity to participate in the care of this patient. Code(s): L02.31 - CUTANEOUS ABSCESS OF BUTTOCK (2) Cellulitis, gluteal, left Assessment/Plan: nearly resolved Code(s): L03.317 - CELLULITIS OF BUTTOCK (3) Human immunodeficiency virus (HIV) seropositivity Assessment/Plan: viral load recently below 20 f/u with [facility] as before - should be seen within a week for wound check Code(s): Z21 - ASYMPTOMATIC HUMAN IMMUNODEFICIENCY VIRUS INFECTION STATUS
--- NOTE | 2019-01-02 19:08 | PN ---
Progress Note, Physician - Current Medication List Current Medications: Active Medications Acetaminophen (Tylenol -) 650 mg PO Q6H PRN PRN Reason: FEVER Last Admin: 01/01/19 12:23 Dose: 650 mg Amitriptyline HCl (Elavil -) 25 mg PO HS PRN PRN Reason: HEADACHE Cholecalciferol (Vitamin D3 -) 2,000 unit PO DAILY [facility] Last Admin: 01/02/19 09:30 Dose: 2,000 unit Clindamycin HCl (Cleocin -) 300 mg PO Q6HPO [facility] Last Admin: 01/02/19 18:03 Dose: 300 mg Emtricitabine/Rilpivirine/Tenofovir (Complera -) 1 each PO DAILY@0800 [facility] Last Admin: 01/02/19 08:31 Dose: 1 each Fluoxetine HCl (Prozac -) 10 mg PO DAILY [facility] Last Admin: 01/02/19 09:30 Dose: 10 mg Heparin Sodium (Porcine) (Heparin -) 5,000 unit SQ BID [facility] Last Admin: 01/02/19 09:30 Dose: Not Given Multivitamins/Minerals/Vitamin C (Tab-A-Vit -) 1 tab PO DAILY [facility] Last Admin: 01/02/19 09:30 Dose: 1 tab Ondansetron HCl (Zofran Injection) 4 mg IVPUSH Q4H PRN PRN Reason: NAUSEA AND/OR VOMITING - Objective Vital Signs: Vital Signs Temperature 97.9 F 01/02/19 10:00 Pulse Rate 64 01/02/19 10:00 Respiratory Rate 18 01/02/19 10:00 Blood Pressure 106/61 01/02/19 10:00 O2 Sat by Pulse Oximetry (%) 100 01/02/19 09:00 Constitutional: Yes: No Distress HENT: Yes: Atraumatic Neck: Yes: Supple Cardiovascular: Yes: Regular Rate and Rhythm Respiratory: Yes: CTA Bilaterally Gastrointestinal: Yes: Normal Bowel Sounds Extremities: Yes: WNL, Other (left gluteal fold wound is clean, dressing on it) Edema: No Neurological: Yes: Alert, Oriented Labs: CBC, BMP 12/31/18 07:45 12/31/18 07:45 INR, PTT INR 0.99 (0.83-1.09) 12/30/18 17:35 Problem List - Problems (1) Abscess Assessment/Plan: iv abx s/p I and D dc home on po abx Code(s): L02.91 - CUTANEOUS ABSCESS, UNSPECIFIED (2) Human immunodeficiency virus (HIV) seropositivity Assessment/Plan: continue home meds Code(s): Z21 - ASYMPTOMATIC HUMAN IMMUNODEFICIENCY VIRUS INFECTION STATUS
--- NOTE | 2019-01-02 19:09 | DS ---
Physical Examination Vital Signs: Vital Signs Temperature 97.9 F 01/02/19 10:00 Pulse Rate 64 01/02/19 10:00 Respiratory Rate 18 01/02/19 10:00 Blood Pressure 106/61 01/02/19 10:00 O2 Sat by Pulse Oximetry (%) 100 01/02/19 09:00 Constitutional: Yes: No Distress HENT: Yes: Atraumatic Neck: Yes: Supple Cardiovascular: Yes: Regular Rate and Rhythm Respiratory: Yes: CTA Bilaterally Gastrointestinal: Yes: Normal Bowel Sounds Extremities: Yes: WNL, Other (L gluteal fold wound ...dressing clean) Neurological: Yes: Alert, Oriented Labs: CBC, BMP 12/31/18 07:45 12/31/18 07:45 Discharge Summary Reason For Visit: ABCESS Current Active Problems Abscess, gluteal, left (Acute) Cellulitis, gluteal, left (Acute) Nausea & vomiting (Acute) Condition: Improved - Instructions Diet, Activity, Other Instructions: Take ALL antibiotics as directed - Clindamycin 300 mg 4 times daily (about every 6 hours) for 7 days. Keep the wound clean, shower at least daily, and keep the site covered as needed with gauze and tape after cleansing to manage the drainage, until it is fully healed. Tuck the gauze into the wound a little to make sure it heals from the inside out. Follow up at [facility] within 1 WEEK for a wound check. See your primary doctor within 1-2 weeks as well. Disposition: HOME - Home Medications Comprehensive Discharge Medication List: Ambulatory Orders Cholecalciferol (Vitamin D3) [Vitamin D3] 2,000 unit PO DAILY #30 capsule Acetaminophen [Tylenol] 2 tab PO Q4H PRN #60 tablet 01/12/17 Ibuprofen [Motrin -] 1 tab PO Q8H PRN #21 tablet MDD 3 06/20/17 Multivitamin with Minerals [Icaps Plus] 1 each PO DAILY #30 tablet 06/20/17 Multivitamin [Daily Multiple Vitamin] 1 each PO DAILY #30 tablet 09/23/18 Vitamin B Complex [B Complex] 1 each PO DAILY #30 tablet 09/23/18 Efavirenz/Emtricit/Tenofovr Df [Atripla Tablet] 1 each PO HS 12/31/18 Clindamycin [Cleocin -] 300 mg PO Q6HPO #30 capsule 01/02/19 [facility]
[2019-01-02 20:18] VITALS: BP 108/53; PULSE 57; TEMP 98.2
== END 2019-01-02 19:45 | disposition home or self-care (01) | DRG 383 ==
LOC: JER 16:19 → JERBED 18:59 → OBSVTOIN 21:20 → J8W 23:56
PROVIDERS: ADMIT Internal Medicine; ATTEND Internal Medicine
DX: L02.416 Cutaneous abscess of left lower limb (principal); L03.317 Cellulitis of buttock; Z21 Asymptomatic human immunodeficiency virus [HIV] infection status; F32.9 Major depressive disorder, single episode, unspecified; R11.2 Nausea with vomiting, unspecified; L02.31 Cutaneous abscess of buttock; Z86.19 Personal history of other infectious and parasitic diseases
CPT/HCPCS: 36415; 80053; 81003; 81015; 83605; 84703; 85025; 85610; 85730; 87040; 87086; 90732; 99283-25; G0009; G0378; J1644

== ENCOUNTER 2021-01-03 06:15 | Emergency (ER) | payer OTHER ==
[2021-01-03 06:27] VITALS: TEMP 98; BMI 31.8
[2021-01-03] MEDS ORDERED: MAG HYDROX/AL HYDROX/SIMETH -MYLANTA- ORAL SUSPENSION PO ONE (07:32)
[2021-01-03] MEDS ORDERED: FAMOTIDINE 20 MG/50 ML IVPB 20 MG/50 ML MG IVPB ONE ×2 (07:32→07:40)
[2021-01-03] MEDS ORDERED: LIDOCAINE VISCOUS 2% ORAL/TOP 20 ML UNIT-DOSE CUP MM ONE (07:32)
[2021-01-03] MEDS ORDERED: LIDOCAINE VISCOUS 2% ORAL/TOP 20 ML UNIT-DOSE CUP ONE (07:40)
[2021-01-03] MEDS ORDERED: MAG HYDROX/AL HYDROX/SIMETH 30 ML UNIT-DOSE CUP ONE (07:40)
[2021-01-03] MEDS ORDERED: ACETAMINOPHEN 1000 MG/100 ML VIAL (NON FORMULARY) IVPB ONE (07:44)
[2021-01-03] MEDS ORDERED: LACTATED RINGERS SOLUTION 1000 ML INFUS.BAG IV ONE (07:44)
[2021-01-03] MEDS ORDERED: ACETAMINOPHEN INJECTION 100 ML IVPB ONE (07:55)
[2021-01-03 08:14] LABS: BASO % 0.2 % (0-2.0); HEMATOCRIT 34.9 % (32.4-45.2); HEMOGLOBIN 11.8 GM/dL (10.7-15.3); LYMPH % 23.9 % (8-40); MCH 30.3 pg (25.7-33.7); MCHC 33.8 g/dl (32.0-36.0); MEAN CELL VOLUME 89.8 fl (80-96); MEAN PLT VOLUME 9.4 fl (7.5-11.1); MONO % 9.4 % (3.8-10.2); NEUT % 62.5 % (42.8-82.8); PLATELET COUNT 104 K/MM3 (134-434); RBC 3.88 M/mm3 (3.60-5.2); RDW 13.4 % (11.6-15.6); WHITE BLOOD COUNT 3.8 K/mm3 (4.0-10.0)
[2021-01-03 08:33] LABS: CHLORIDE 110 mmol/L (98-107); POTASSIUM 3.8 mmol/L (3.5-5.1); SODIUM 140 mmol/L (136-145)
[2021-01-03 08:35] LABS: CALCIUM 8.4 mg/dL (8.5-10.1)
[2021-01-03 08:36] LABS: ALBUMIN 3.3 g/dl (3.4-5.0); ANION GAP 4 MMOL/L (8-16); BLOOD UREA NITROGEN 17.6 mg/dL (7-18); CO2 27 mmol/L (21-32); GLUCOSE,RANDOM 114 mg/dL (74-106); LIPASE 498 U/L (73-393)
[2021-01-03 08:39] LABS: CREATININE 0.8 mg/dL (0.55-1.3); SGOT/AST 54 U/L (15-37); SGPT/ALT 50 U/L (13-61)
[2021-01-03 08:40] LABS: BILIRUBIN,TOTAL 0.5 mg/dL (0.2-1); TOT PROT 7.1 g/dl (6.4-8.2)
[2021-01-03 08:41] LABS: ALK PHOS 138 U/L (45-117)
[2021-01-03 11:40] VITALS: BP 155/72; PULSE 72
== END 2021-01-03 12:00 | disposition home or self-care (01) ==
LOC: JER 06:15
PROC: 3E0333Z Introduction of Anti-inflammatory into Peripheral Vein, Percutaneous Approach (ICD-10-PCS; principal; 2021-01-03)
PROC: 3E033GC Introduction of Other Therapeutic Substance into Peripheral Vein, Percutaneous Approach (ICD-10-PCS; 2021-01-03)
DX: R10.13 Epigastric pain (principal)
CPT/HCPCS: 36415; 71046-TC-FY; 74177-TC; 80053; 82550; 83605; 83690; 84484; 85025; 93005; 93010; 99285-25; J0131; Q9967